=== PATIENT | male | born 1975 | race Caucasian/White ===

== ENCOUNTER 2019-08-13 08:31 | Outpatient (CLI) | payer BC, SELFPAY ==
--- NOTE | 2019-08-13 11:00 | NEURO_ITS ---
Patient Number: [id number] Impression: # Complains of generalized weakness/numbness of upper and lower extremities. # Normal nerve conduction study. # No neuropathy, Carpal Tunnel Syndrome or ulnar neuropathy. # Normal needle/EMG exam. Nerve Conduction Studies Anti Sensory Summary Table Stim Site NR Peak (ms) P-T Amp (?V) Site1 Site2 Delta-P (ms) Dist (cm) Paul (m/s) Left Median Anti Sensory (2-3nd Digit) Wrist 2.9 50.8 Wrist 2-3nd Digit 2.9 14.0 48 Wrist 2.8 65.0 Wrist 2-3nd Digit 2.9 14.0 48 Right Median Anti Sensory (2-3nd Digit) Wrist 2.8 59.5 Wrist 2-3nd Digit 2.8 14.0 50 Wrist 2.8 46.6 Wrist 2-3nd Digit 2.8 14.0 50 Left Radial Anti Sensory (Base 1st Digit) Wrist 2.3 28.7 Wrist Base 1st Digit 2.3 0.0 Right Radial Anti Sensory (Base 1st Digit) Wrist 2.2 23.7 Wrist Base 1st Digit 2.2 0.0 Left Sup Fibular Anti Sensory (Ant Lat Mall) 14 cm 3.8 6.5 14 cm Ant Lat Mall 3.8 16.0 42 Right Sup Fibular Anti Sensory (Ant Lat Mall) 14 cm 4.0 15.4 14 cm Ant Lat Mall 4.0 16.0 40 Left Sural Anti Sensory (Lat Mall) Calf 4.0 12.2 Calf Lat Mall 4.0 16.0 40 Right Sural Anti Sensory (Lat Mall) Calf 3.8 9.0 Calf Lat Mall 3.8 16.0 42 Left Ulnar Anti Sensory (5th Digit) Wrist 2.8 62.4 Wrist 5th Digit 2.8 14.0 50 Right Ulnar Anti Sensory (5th Digit) Wrist 2.4 39.9 Wrist 5th Digit 2.4 14.0 58 Motor Summary Table Stim Site NR Onset (ms) O-P Amp (mV) Site1 Site2 Delta-0 (ms) Dist (cm) Paul (m/s) Left Median Motor (Abd Poll Brev) Wrist 3.1 3.9 Elbow Wrist 4.9 30.0 61 Elbow 8.0 3.3 Right Median Motor (Abd Poll Brev) Wrist 3.3 4.5 Elbow Wrist 4.6 29.0 63 Elbow 7.9 4.1 Left Peroneal Motor (Vastus Med) Ankle 4.8 1.6 Popit Ankle 9.1 41.0 45 Popit 13.9 1.2 Right Peroneal Motor (Vastus Med) Ankle 4.9 1.8 Popit Ankle 9.2 39.0 42 Popit 14.1 1.5 Left Tibial Motor (Abd Cabrera Brev) Ankle 5.2 5.2 Knee Ankle 9.3 45.0 48 Knee 14.5 3.3 Right Tibial Motor (Abd Cabrera Brev) Ankle 5.6 8.8 Knee Ankle 8.9 42.0 47 Knee 14.5 8.5 Left Ulnar Motor (Abd Dig Minimi) Wrist 2.7 6.8 A Elbow Wrist 5.0 31.0 62 A Elbow 7.7 5.4 Right Ulnar Motor (Abd Dig Minimi) Wrist 2.4 4.4 A Elbow Wrist 4.8 30.0 62 A Elbow 7.2 3.6 F Wave Studies NR F-Lat (ms) L-R F-Lat (ms) Left Median (Mrkrs) (Abd Poll Brev) 27.25 1.05 Right Median (Mrkrs) (Abd Poll Brev) 28.30 1.05 Left Peroneal (Mrkrs) (EDB) 53.21 0.86 Right Peroneal (Mrkrs) (EDB) 52.34 0.86 Left Tibial (Mrkrs) (Abd Hallucis) 52.37 1.02 Right Tibial (Mrkrs) (Abd Hallucis) 51.35 1.02 Left Ulnar (Mrkrs) (Abd Dig Min) 27.76 0.70 Right Ulnar (Mrkrs) (Abd Dig Min) 28.46 0.70 EMG Side Muscle Nerve Root Ins Act Fibs Amp Dur Recrt Comment Right 1stDorInt Ulnar C8-T1 Nml Nml Nml Nml Nml Right Ext Indicis Radial (Post Int) C7-8 Nml Nml Nml Nml Nml Right Ext Digitorum Radial (Post Int) C7-8 Nml Nml Nml Nml Nml Right BrachioRad Radial C5-6 Nml Nml Nml Nml Nml Right PronatorTeres Median C6-7 Nml Nml Nml Nml Nml Right Abd Poll Brev Median C8-T1 Nml Nml Nml Nml Nml Right AntTibialis Dp Br Fibular L4-5 Nml Nml Nml N
== END 2019-08-13 08:32 | disposition home or self-care (01) ==
PROVIDERS: PCP Family Medicine Adolescent Medicine; Visit Provider Psychiatry & Neurology Neurology
DX: M62.81 Muscle weakness (generalized) (principal)
CPT/HCPCS: 95886; 95913

== ENCOUNTER 2020-09-12 13:10 | Outpatient (CLI) | payer OTHER, SELFPAY ==
--- NOTE | ~2020-09-12 | CT_ITS ---
EXAMINATION: CT abdomen pelvis w con DATE: 09/12/2020 13:45 INDICATION: Epigastric abdominal pain. Left-sided back pain. TECHNIQUE: Computed tomography (CT) of the abdomen and pelvis was performed with 100 L Omnipaque 350 intravenous contrast. Automated exposure control and iterative reconstruction technique were employed . The dose-length product was 497.84 mGy-cm. COMPARISON: None. FINDINGS: The visualized portions of the lung bases demonstrate mild atelectasis. No pleural effusion . The heart size is normal. No pericardial effusion. The liver, gallbladder, spleen, pancreas, adrena l glands, and right kidney are normal. There is a 9 mm cyst in left kidney. There are no dilated loop s of bowel. The appendix is normal. There is a small sliding hiatal hernia. There are no pathological ly enlarged lymph nodes. There is no free intraperitoneal fluid. There is moderate lower lumbar spond ylosis. IMPRESSION: 1. Small sliding hiatal hernia. Reviewed, dictated and finalized at location A.
== END 2020-09-12 13:11 | disposition home or self-care (01) ==
PROVIDERS: PCP Physician Assistant; Visit Provider Physician Assistant
DX: R10.13 Epigastric pain (principal); K44.9 Diaphragmatic hernia without obstruction or gangrene
CPT/HCPCS: 74177; Q9967

== ENCOUNTER 2021-02-23 15:20 | Emergency (ER) | payer OTHER, SELFPAY ==
[2021-02-23 15:24] VITALS: BP 124/91; PULSE 69; RESP 20; TEMP 36.7; O2SAT 100
[2021-02-23 15:52] LABS: Basophils Absolute Auto 0.1 K/mm3 (0.0-0.1); Basophils Percent Auto 0.7 % (0.2-1.2); Eosinophils Absolute Auto 0.2 K/mm3 (0-0.3); Eosinophils Percent Auto 3.1 % (0-4.4); Hematocrit 44.5 % (42.0-52.0); Hemoglobin 15.1 g/dL (14.0-18.0); Immature Granulocyte Absolute 0.02 K/mm3 (0.00-0.031); Immature Granulocyte Percent A 0.3 % (0-0.5); Lymphocytes Absolute Auto 1.62 K/mm3 (0.9-3.2); Lymphocytes Percent Auto 22.6 % (18.3-44.2); Mean Corpuscular HGB Conc 33.9 g/dl (32-36); Mean Corpuscular Hemoglobin 29.8 pg (26-34); Mean Corpuscular Volume 87.9 fl (80-100); Mean Platelet Volume 9.6 fl (7.4-10.4); Monocytes Absolute Auto 0.5 K/mm3 (0.1-0.6); Monocytes Percent Auto 6.7 % (2.6-8.5); Neutrophils Absolute Auto 4.8 K/mm3 (1.3-6.7); Neutrophils Percent Auto 66.6 % (45.5-73.1); Platelet Count Result 293 k/mm3 (150-375); Red Blood Count 5.06 M/mm3 (4.6-6.20); Red Cell Distribution Width 13.1 % (11.5-14.5); White Blood Count 7.2 K/mm3 (4.5-10.0)
[2021-02-23 15:54] LABS: Add Urine Microscopic? NO; Appearance Urine Clear (Clear); Bilirubin Urine Negative (Negative); Blood Urine Negative (Negative); Color Urine Straw (Yellow); Glucose Urine UA Negative (Negative); Ketones Urine Negative (Negative); Leukocyte Esterase Ur Negative LEU/UL (Negative); Nitrate Urine Negative (Negative); Protein Urine Negative (Negative); Specific Grav Ur 1.006 (1.001-1.035); Urobilinogen Urine Negative mg/dL (<2.0)
[2021-02-23 16:09] LABS: Alanine Aminotransferase 18 U/L (4-50); Albumin Level 4.7 g/dL (3.5-5.1); Alkaline Phosphatase 80 U/L (38-126); Anion Gap 11 mmol/L (8-16); Aspartate Amino Transferase 22 U/L (17-59); Bilirubin,Total 0.6 mg/dL (0.2-1.3); Blood Urea Nitrogen 9 mg/dL (9-20); Calcium 9.8 mg/dL (8.4-10.2); Carbon Dioxide 24 mmol/L (22-30); Chloride 105 mmol/L (98-107); Estimated CRCL calculation 79 ml/min; Estimated Glomerular Filt Rate > 60; Glucose 117 mg/dL (65-110); Sodium 140 mmol/L (137-145)
[2021-02-23 16:11] LABS: Amphetamine Screen Urine Negative (Negative); Barbiturate Screen Urine Negative (Negative); Benzodiazepines Screen Urine Positive (Negative); Cannabinoid Screen Urine Positive (Negative); Cocaine Screen Urine Negative (Negative); Methadone Screen Urine Negative (Negative); Opiate Screen Urine Negative (Negative); Phencyclidine Screen Urine Negative (Negative)
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
[2021-02-23 16:39] LABS: Thyroid Stimulating Hormone 0.863 uIU/mL (0.465-4.680)
[2021-02-23 17:24] LABS: Ethanol < 10 mg/dL (<10)
--- NOTE | 2021-02-23 20:04 | PC.NURSE ---
secratary faxed pt file to [facility] at 2005
[2021-02-23 20:39] LABS: EDCOVIDSCREEN Negative (Negative)
--- NOTE | 2021-02-23 20:41 | PC.NURSE ---
Requests home medications, reviewed with Dr. Castillo and orders placed.
[2021-02-23] MEDS: ALPRAZolam (*CRX) 0.25 MG TABLET 1 MG PO (21:12)
[2021-02-23] MEDS: DIVALPROEX SODIUM DR 250 MG TABEC 500 MG PO (22:02)
[2021-02-23] MEDS: ARIPiprazole 2 MG TABLET PO (22:02)
[2021-02-23] MEDS: lamoTRIgine 100 MG TABLET PO (22:03)
--- NOTE | 2021-02-23 22:54 | PC.NURSE ---
made contact with mohini, valeriy germain, and yadiel KAN to transfer pt to [facility]. company eta [phone] (trip# [id number])
--- NOTE | 2021-02-23 23:38 | PC.NURSE ---
tafoya new eta [phone]
--- NOTE | 2021-02-24 01:45 | PC.NURSE ---
[place] has arrived
[2021-02-24 01:50] VITALS: BP 127/87; PULSE 74; RESP 18; O2SAT 99
== END 2021-02-24 01:50 ==
PROVIDERS: Emergency Medicine; Emergency Provider Emergency Medicine; PCP Family Medicine Adolescent Medicine
DX: R45.850 Homicidal ideations (principal); F31.9 Bipolar disorder, unspecified; F41.9 Anxiety disorder, unspecified; Z20.822 Contact with and (suspected) exposure to COVID-19
CPT/HCPCS: 36415; 80053; 80307; 81003; 84443; 85025; 87426; 99285; A9270; C9803

== ENCOUNTER 2022-05-17 18:59 | Inpatient (IN) | payer SELFPAY ==
--- NOTE | ~2022-05-17 | CT_ITS ---
EXAMINATION: CT abdomen pelvis w con DATE: 05/17/2022 22:39 INDICATION: Generalized abdominal pain. TECHNIQUE: Computed tomography (CT) of the abdomen and pelvis was performed with 100 mL Omnipaque 350 intravenous contrast. Automated exposure control and iterative reconstruction technique were employe d. The dose-length product was 402.62 mGy-cm. COMPARISON: CT abdomen and pelvis 09/12/2020 FINDINGS: The visualized portions of the lung bases are clear without pneumonia or pleural effusion. The heart size is normal. No pericardial effusion. The liver, gallbladder, spleen, pancreas, adrenal glands, and right kidney are normal. There is an 8 mm cyst in left kidney. The appendix is normal. Th ere are multiple dilated loops of small bowel with transition point in the anterior abdomen. There is mild mesenteric lymphadenopathy. There is trace pelvic ascites. There is severe lower lumbar spondyl osis. There is mild thoracic spondylosis. There is mild chronic anterior wedging of multiple thoracic vertebral bodies. IMPRESSION: 1. Small bowel obstruction with transition point in the anterior abdomen. 2. Mild mesenteric lymphadenopathy, likely reactive. Reviewed, dictated and finalized at location A. H PRESS OPERATOR
--- NOTE | ~2022-05-17 | XR_ITS ---
EXAMINATION: XR abdomen NG/feed tube rechec DATE: 05/18/2022 18:14 INDICATION: Nasogastric tube adjustment. TECHNIQUE: An upright view of the abdomen was obtained. COMPARISON: Abdomen radiograph at 4:01 p.m. FINDINGS: The lower abdomen and right lateral aspect of the abdomen are excluded. There are no dilate d loops of bowel. The nasogastric tube tip is in the stomach. IMPRESSION: 1. Nasogastric tube tip in the stomach. Reviewed, dictated and finalized at location A. OR RELIABILITY ENGINEER
--- NOTE | ~2022-05-17 | XR_ITS ---
EXAMINATION: XR abdomen/kub 1V DATE: 05/20/2022 05:53 INDICATION: Small bowel obstruction. TECHNIQUE: A supine view of the abdomen was obtained. COMPARISON: CT abdomen and pelvis 05/17/22 FINDINGS: There are no dilated loops of bowel. There is a moderate volume of stool in the colon. The nasogastric tube tip is in the stomach. IMPRESSION: 1. Nonobstructive bowel gas pattern. Reviewed, dictated and finalized at location A. OLEUM GEOLOGY FACULTY MEMBER
--- NOTE | ~2022-05-17 | XR_ITS ---
Portable upright view of the abdomen Clinical history: NG tube placement Findings: NG tube is in satisfactory position. Several dilated loops of small bowel are noted in the upper abdomen. No evidence for free air. No abnormal mass lesion or calcification is seen. Osseous st ructures are intact. Impression: NG tube in place, several dilated small bowel loops. Reviewed, dictated and finalized at location . [place] PARTS PRO Impression: NG tube in place, several dilated small bowel loops.
--- NOTE | ~2022-05-17 | XR_ITS ---
EXAMINATION: XR sm bowel follow through DATE: 05/20/2022 12:49 INDICATION: Small bowel obstruction. TECHNIQUE: Oral contrast was administered, and a time course of radiographs of the abdomen was obtain ed. Fluoroscopy of the small bowel was not performed. Fluoroscopy exposure time was 0 minutes. The to aviva number of images was 5. COMPARISON: CT abdomen and pelvis 05/17/22 FINDINGS: The nasogastric tube tip is in the stomach. There are no dilated loops of small bowel. No abnormal ma ss or stricture. Transit time from the stomach to proximal colon was approximately 30 minutes. IMPRESSION: 1. Normal small bowel series. Reviewed, dictated and finalized at location A. RN CAR ATTENDANT
--- NOTE | ~2022-05-17 | XR_ITS ---
Supine portable view of the abdomen Clinical history: Small bowel obstruction Findings: Bowel gas pattern is nonspecific. Oral contrast present in large bowel. No evidence for obs truction or free air. No abnormal mass lesion or calcification is seen. Osseous structures are intact . Impression: Nonspecific bowel gas pattern, with oral contrast in large bowel. Reviewed, dictated and finalized at [facility]. MILL OPERATOR Impression: Nonspecific bowel gas pattern, with oral contrast in large bowel.
--- NOTE | ~2022-05-17 | XR_ITS ---
EXAMINATION: XR abdomen NG/feed tube rechec DATE: 05/18/2022 16:15 INDICATION: Small bowel obstruction. Minimal nasogastric tube output. TECHNIQUE: An upright view of the abdomen was obtained. COMPARISON: CT abdomen and pelvis 05/17/22 FINDINGS: The lower abdomen is excluded. There are no visible dilated loops of bowel. The nasogastric tube tip is in the stomach. IMPRESSION: 1. Nasogastric tube tip in the stomach. Reviewed, dictated and finalized at location A. ARIN SPEAKING NANNY
--- NOTE | ~2022-05-17 | XR_ITS ---
EXAMINATION: XR abdomen/kub 1V DATE: 05/19/2022 06:16 INDICATION: Small bowel obstruction. TECHNIQUE: A supine view of the abdomen on 3 radiographs was obtained. COMPARISON: CT abdomen and pelvis 05/17/22 FINDINGS: There are no dilated loops of bowel. There is a small volume of stool in the colon. The alexandra ogastric tube tip is in the stomach. IMPRESSION: 1. Nonobstructive bowel gas pattern. Reviewed, dictated and finalized at location A. STIC VIOLENCE COUNSELOR
[2022-05-17 19:09] VITALS: BP 155/103; PULSE 69; RESP 16; TEMP 36.2; O2SAT 99
[2022-05-17 19:29] LABS: Basophils Percent Auto 0.2 % (0.2-1.2); Eosinophils Percent Auto 0.1 % (0-4.4); Hematocrit 51.5 % (42.0-52.0); Hemoglobin 17.5 g/dL (14.0-18.0); Immature Granulocyte Absolute 0.08 K/mm3 (0.00-0.031); Immature Granulocyte Percent A 0.5 % (0-0.5); Lymphocytes Absolute Auto 0.76 K/mm3 (0.9-3.2); Lymphocytes Percent Auto 4.5 % (18.3-44.2); Mean Corpuscular Hemoglobin 30.3 pg (26-34); Mean Corpuscular Volume 89.1 fl (80-100); Mean Platelet Volume 9.5 fl (7.4-10.4); Monocytes Absolute Auto 0.5 K/mm3 (0.1-0.6); Monocytes Percent Auto 2.9 % (2.6-8.5); Neutrophils Absolute Auto 15.6 K/mm3 (1.3-6.7); Neutrophils Percent Auto 91.8 % (45.5-73.1); Platelet Count Result 379 k/mm3 (150-375); Red Blood Count 5.78 M/mm3 (4.6-6.20); Red Cell Distribution Width 12.8 % (11.5-14.5)
[2022-05-17 19:39] LABS: Alanine Aminotransferase 23 U/L (6-50); Albumin Level 5.2 g/dL (3.5-5.1); Alkaline Phosphatase 83 U/L (38-126); Anion Gap 13 mmol/L (8-16); Aspartate Amino Transferase 27 U/L (17-59); Bilirubin,Total 0.7 mg/dL (0.2-1.3); Blood Urea Nitrogen 17 mg/dL (9-20); Calcium 10.5 mg/dL (8.4-10.2); Carbon Dioxide 30 mmol/L (22-30); Chloride 97 mmol/L (98-107); Estimated CRCL calculation 85 ml/min; Estimated Glomerular Filt Rate > 60; Glucose 154 mg/dL (65-110); Lipase 51 U/L (23-300); Sodium 140 mmol/L (137-145)
[2022-05-17 19:41] LABS: Lactic Acid Reflex 1.7 mmol/L (0.7-2.0)
[2022-05-17 22:26] VITALS: PULSE 76; RESP 9; O2SAT 98
[2022-05-17 22:30] VITALS: PULSE 71; RESP 10; O2SAT 97
[2022-05-17 22:31] VITALS: BP 147/101; PULSE 73; RESP 12
[2022-05-17] MEDS: SODIUM CHLORIDE 0.9% IV 1,000 ML 999 ML IV CONT (22:42)
[2022-05-17] MEDS: MORPHINE SULFATE (*CRX) 4 MG/ML INJ IV PUSH (22:43)
[2022-05-17] MEDS: ONDANSETRON INJ 4 MG/2 ML VIAL IV PUSH (22:43)
--- NOTE | 2022-05-17 23:26 | PC.NURSE ---
patient refusing straight cath. patient encouraged to provide urine sample as soon as possible. fluids infusing per order
[2022-05-17 23:53] VITALS: PULSE 89; RESP 16; O2SAT 95
[2022-05-18] VITALS (11 sets, daily range): BP systolic 116–156; BP diastolic 76–97; PULSE 69–117; RESP 11–30; TEMP 36.2–36.5; O2SAT 95–100
--- NOTE | 2022-05-18 00:03 | ED.GENADULT ---
HPI - General Adult General Chief complaint: Abdominal Pain Stated complaint: abd pain Time Seen by Provider: 05/17/22 22:19 History of Present Illness HPI narrative: Patient 46-year-old gentleman who presents the emergency department with chief complaint of abdominal pain. Patient reports that he started having pain today reports that he has had episodes of nausea and vomiting and reports that the pain is not improved by anything. The patient reports no prior abdominal surgeries Related Data Home Medications Medication Instructions Recorded Confirmed lamotrigine 100 mg tablet 100 mg HS 02/23/21 05/18/22 alprazolam 1 mg tablet 1 mg PO QID 05/29/21 05/18/22 divalproex 500 mg tablet,delayed 500 mg PO QHS 05/29/21 05/18/22 release quetiapine 150 mg tablet,extended 300 mg PO QHS 05/29/21 05/18/22 release 24 hr (Seroquel XR) Allergies Allergy/AdvReac Type Severity Reaction Status Date / Time No Known Allergies Allergy Unknown Uncoded 05/17/22 19:11 Review of Systems Review of Systems: A 10 system review of systems was completed on the patient and is negative except for what is stated in the HPI. Nursing and ancillary documentation was reviewed. [facility] Past Medical History Medical History (Updated 05/18/22 @ 00:15 by Emily Martínez DO) Anxiety Bipolar 1 disorder Depression Dorsalgia of thoracolumbar region Surgical History Surgical History No pertinent past surgical history Family History Family History Mother Asthma Depression Sibling Asthma Cerebrovascular accident Depression Father Heart disease Malignant neoplasm of prostate Social History Social History (Updated 05/18/22 @ 00:13 by Emily Martínez DO) Smoking status: Never smoker Second hand tobacco smoke exposure: No Smoking end date: 05/03/12 Alcohol intake: current Drinks per week: 1 Substance use: current Substance use type: marijuana Lack of Transportation: No Lack of Food: Never True Current Housing: I Have Housing Concerned About Future Housing: No Difficulty Paying Gas/Electric Bills: No Difficulty Paying for Meds: No Currently Unemployed: No Education: High School Diploma/GED Difficulty w/ Childcare or Family Care: No Gender identity (if verbalized by the patient): Male Sexual Orientation (if Verbalized by the Patient): Straight or Heterosexual Spiritual care concerns: No Agree to blood products: Yes Exam Narrative: GENERAL: Well-appearing, well-nourished, and in no acute distress. HEAD: Normocephalic, atraumatic. EYES: PERRLA and EOMI. ENT: Nares clear, no rhinorrhea or epistaxis. Mucous membranes moist. NECK: Supple. CHEST: Clear to auscultation. No respiratory distress. HEART: Regular rate and rhythm. No murmur heard. Normal peripheral pulses. ABDOMEN: Soft, diffusely tender, nondistended, normal active bowel sounds. EXTREMITIES: Normal range of motion. No edema. SKIN: Warm, dry, no rash. NEURO: No focal deficits. Alert and oriented x3. PSYCH: Normal mood and affect. Course Vital Signs Vital signs: Vital Signs Temperature 36.2 C L 05/17/22 19:09 Pulse Rate 69 05/17/22 19:09 Respiratory Rate 16 05/17/22 19:09 Blood Pressure 155/103 H 05/17/22 19:09 Pulse Oximetry 99 05/17/22 19:09 Temperature 36.2 C L 05/17/22 19:09 Pulse Rate 86 05/18/22 00:46 Respiratory Rate 21 H 05/18/22 00:46 Blood Pressure 156/88 H 05/18/22 00:46 Pulse Oximetry 97 05/18/22 00:46 Medical Decision Making MDM Narrative Medical decision making narrative: Laboratory studies were ordered for the patient showed evidence of white blood cell count of 17,000. Patient received IV fluids antiemetics and pain control. Patient is feeling much better. CT scan of the abdomen pelvis showed evidence of a small bowel obstruction with a transitio
--- NOTE | 2022-05-18 00:04 | ECG_ITS ---
Measurements Intervals [place] Rate: 67 P: 9 NM: 129 QRS: 43 QRSD: 101 T: 41 QT: 375 QTc: 399 Interpretive Statements SINUS RHYTHM BASELINE ARTIFACT- I, II, III, AVR, AVL, AVF, V1, V5-V6 NORMAL ECG COMPARED TO ECG 02/18/2019 04:57:42 SINUS RHYTHM NOW PRESENT Electronically Signed On 05-18-2022 7:44:43 MIXER WET POUR by Seymour Valle D.O.
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
[2022-05-18 01:29] LABS: Influenza A QL RT-PCR Negative (Negative); Influenza B QL RT-PCR Negative (Negative); SARS-CoV-2 RNA PCR Negative
--- NOTE | 2022-05-18 01:37 | ADMGEN ---
This patient, Pedro Helms, was admitted to [facility] Surg Room 307-02. Patient/family oriented to hospital policies and general routines including ID bracelet, bed and alarms, visiting hours, pain management, procedures, bathroom and other care routines, personal items, smoking policy, room service/diet, and visiting hours. Information on how to activate the Rapid Response Team has been discussed. Patient/Family are encouraged to report perceived risks to care and to ask questions if they do not understand what they are told or what they should do.
[2022-05-18] MEDS: SODIUM CHLORIDE 0.9% IV 1,000 ML 100 ML IV CONT ×2 (01:53→14:20)
[2022-05-18 02:31] LABS: Add Urine Microscopic? YES; Appearance Urine Clear (Clear); Bilirubin Urine Negative (Negative); Blood Urine Negative (Negative); Color Urine Yellow (Yellow); Glucose Urine UA Negative (Negative); Ketones Urine 3+ mg/dL (Negative); Leukocyte Esterase Ur Negative LEU/UL (Negative); Nitrate Urine Negative (Negative); Protein Urine 1+ mg/dL (Negative); Urobilinogen Urine 0.2 mg/dL (<2.0); pH Urine 8.5 (5.0-9.0)
[2022-05-18 03:06] LABS: Mucus Urine Rare /lpf; Squamous Epithelial Cell Urine Rare /hpf (Few); WBC Urine 0-3 /hpf
[2022-05-18] MEDS: ENOXAPARIN 40 MG/0.4 ML SYRINGE SUB-Q (08:06)
[2022-05-18] MEDS: PANTOPRAZOLE SODIUM IV 40 MG VIAL IV PUSH (08:06)
[2022-05-18 08:57] LABS: Hematocrit 42.3 % (42.0-52.0); Hemoglobin 14.4 g/dL (14.0-18.0); Mean Corpuscular Hemoglobin 30.9 pg (26-34); Mean Corpuscular Volume 90.8 fl (80-100); Mean Platelet Volume 9.4 fl (7.4-10.4); Platelet Count Result 286 k/mm3 (150-375); Red Blood Count 4.66 M/mm3 (4.6-6.20); Red Cell Distribution Width 13.1 % (11.5-14.5); White Blood Count 13.1 K/mm3 (4.5-10.0)
[2022-05-18 09:09] LABS: Alanine Aminotransferase 19 U/L (6-50); Albumin Level 4.1 g/dL (3.5-5.1); Alkaline Phosphatase 52 U/L (38-126); Anion Gap 6 mmol/L (8-16); Aspartate Amino Transferase 22 U/L (17-59); Bilirubin,Total 0.7 mg/dL (0.2-1.3); Blood Urea Nitrogen 13 mg/dL (9-20); Calcium 8.8 mg/dL (8.4-10.2); Carbon Dioxide 26 mmol/L (22-30); Chloride 102 mmol/L (98-107); Estimated CRCL calculation 85 ml/min; Estimated Glomerular Filt Rate > 60; Glucose 114 mg/dL (65-110); Potassium 3.7 mmol/L (3.4-5.0); Sodium 134 mmol/L (137-145)
[2022-05-18] MEDS: MORPHINE SULFATE (*CRX) 2 MG/ML INJ IV PUSH (15:09)
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
--- NOTE | 2022-05-18 18:17 | PC.NURSE ---
Pt stated that the dose that was entered into the home med list is accurate, however, it does not match the external pharmacy. Discussed the dosage in detail with patient and requested someone to bring in his pill bottles for us to compare. He said no one has access to his house until at least tomorrow. Called Dr Monroe to update on the situation, he stated he will look in the chart and update.
--- NOTE | 2022-05-18 18:39 | PC.NURSE ---
Spoke with Dr Monroe again and he stated to order the doses that come from his external med history so patient can get a dose tonight and change dosage tomorrow once the bottles are brought in.
[2022-05-18] MEDS: KCL 20 MEQ/D5/0.9% SOD CHL 1,000 ML 100 ML IV CONT (20:37)
[2022-05-18] MEDS: QUEtiapine FUMARATE 100 MG TABLET PO (20:38)
[2022-05-18] MEDS: DIVALPROEX SODIUM ER 250 MG TAB.24H 750 MG PO (20:38)
[2022-05-18] MEDS: lamoTRIgine 100 MG TABLET BY MOUTH (20:41)
[2022-05-18] MEDS: FAMOTIDINE 20 MG/2 ML VIAL IV PUSH (20:42)
[2022-05-19 06:00] VITALS: BP 112/73; PULSE 61; RESP 14; TEMP 36.4; O2SAT 97
[2022-05-19] MEDS: KCL 20 MEQ/D5/0.9% SOD CHL 1,000 ML 100 ML IV CONT ×2 (06:41→19:17)
[2022-05-19 06:54] LABS: Hemoglobin 13.9 g/dL (14.0-18.0); Mean Corpuscular HGB Conc 33.1 g/dl (32-36); Mean Corpuscular Hemoglobin 30.5 pg (26-34); Mean Corpuscular Volume 92.3 fl (80-100); Platelet Count Result 238 k/mm3 (150-375); Red Blood Count 4.55 M/mm3 (4.6-6.20); White Blood Count 7.7 K/mm3 (4.5-10.0)
[2022-05-19 07:09] LABS: Alanine Aminotransferase 18 U/L (6-50); Albumin Level 3.9 g/dL (3.5-5.1); Alkaline Phosphatase 49 U/L (38-126); Anion Gap 6 mmol/L (8-16); Aspartate Amino Transferase 21 U/L (17-59); Bilirubin,Total 0.7 mg/dL (0.2-1.3); Blood Urea Nitrogen 11 mg/dL (9-20); Calcium 8.2 mg/dL (8.4-10.2); Carbon Dioxide 27 mmol/L (22-30); Chloride 103 mmol/L (98-107); Estimated CRCL calculation 78 ml/min; Estimated Glomerular Filt Rate > 60; Glucose 108 mg/dL (65-110); Potassium 3.8 mmol/L (3.4-5.0); Sodium 136 mmol/L (137-145)
[2022-05-19] MEDS: DIVALPROEX SODIUM ER 250 MG TAB.24H PO (08:33)
[2022-05-19] MEDS: ENOXAPARIN 40 MG/0.4 ML SYRINGE SUB-Q (08:33)
[2022-05-19] MEDS: FAMOTIDINE 20 MG/2 ML VIAL IV PUSH ×2 (08:33→20:15)
--- NOTE | 2022-05-19 10:38 | PM.CNGS ---
Assessment and Plan Assessment and plan (1) Small bowel obstruction: Code(s): K56.609 - Unspecified intestinal obstruction, unspecified as to partial versus complete obstruction Status: Acute Assessment and Plan: Small-bowel obstruction by clinical and radiographic criteria. Hopefully this will resolve with nonsurgical means. Will advance nasogastric tube and increased suction to constant and medium. Follow serial exams, plain films of the abdomen, labs. Continue NPO except meds with sips and NG suction. He has p.r.n. analgesics as well. Will follow along with you. Thanks for asking me to see this patient in consultation. (2) Bipolar 1 disorder: Code(s): F31.9 - Bipolar disorder, unspecified Status: Chronic Assessment and Plan: Patient takes several meds for this at bedtime. Will continue these and clamp NG tube for 45 minutes so they can be absorbed. History of Present Illness Consult details Consult date: 05/18/22 (Patient seen and examined around 5:00 p.m. 05/18/2022, dictation performed 05/19/2022.) Reason for consult: abdominal pain Requesting physician: Corey Sorenson MD Narrative: Patient is a 46-year-old man who began having abdominal pain of a diffuse nature around 3:00 p.m. on the day of admission. This pain worsened and then was accompanied by large amounts of nausea and vomiting. When it persisted, he came to the emergency room. He was noted there to have a diffusely tender abdomen [place] [address] scan showed small bowel obstruction. Nasogastric tube was placed. Not a lot of gastric content had returned and patient continued to have abdominal pain although is vomiting had stopped. He has not had any previous abdominal surgery. He is seen in consultation. He has not had a bowel movement in a couple of days. Review of Systems Review of Systems: All systems reviewed & are unremarkable except as noted in HPI and below (HPI and those items noted below) Constitutional: Constitutional: Denies chills and Denies fever(s) Cardiovascular: Cardiovascular: Denies chest pain, Denies diaphoresis, Denies dyspnea and Denies paroxysmal nocturnal dyspnea Respiratory: Respiratory: Denies chest congestion, Denies cough and Denies dyspnea Integumentary/Breasts: Skin/Breast: Denies lesions and Denies rash PMFSH Past Medical History Medical History Anxiety Bipolar 1 disorder Depression Dorsalgia of thoracolumbar region Migraine headache Surgical History Surgical History No pertinent past surgical history Family History Family History Mother Asthma Depression Sibling Asthma Cerebrovascular accident Depression Father Malignant neoplasm of prostate Social History Social History Social History: The patient is single and lives alone. He has 1 daughter who is 26 years old. He works as a warehouse general laborer. He rarely drinks alcohol and only in small amounts. He used to smoke less than a pack of cigarettes per day for between 8-10 years. He quit smoking in his mid 30s. He smokes marijuana and aids marijuana gummies. He has a medical marijuana card. Code status: Full code Surrogate decision maker: Mother Smoking packs per day: 0.5 Smoking cigarettes per day: 10.0 Years smoked: 10 Smoking pack-years: 5.00 Smoking status: Former smoker Second hand tobacco smoke exposure: No Smoking end date: 05/03/12 Alcohol intake: current Drinks per week: 1 Substance use: current Substance use type: marijuana Lack of Transportation: No Lack of Food: Never True Current Housing: I Have Housing Concerned About Future Housing: No Difficulty Paying Gas/Electric Bills: No Difficulty Paying for Meds: N
--- NOTE | 2022-05-19 10:50 | PM.PNGS ---
Progress Note: A&P Assessment and Plan (1) Small bowel obstruction: Code(s): K56.609 - Unspecified intestinal obstruction, unspecified as to partial versus complete obstruction Status: Acute Assessment and Plan: Improving. Continue present treatment. Possibly proceed with water-soluble small bowel follow-through tomorrow. (2) Bipolar 1 disorder: Code(s): F31.9 - Bipolar disorder, unspecified Status: Chronic Assessment and Plan: Received home meds last night. Voices no problems. Subjective Subjective Date/Time Seen: 05/19/22 10:50 Patient reports: feels better, pain is less, no flatus, no bowel movement and afebrile Interval history: Feels better today. Pain is much better. Still having some pain. Review of Systems Review of Systems: All systems reviewed & are unremarkable except as noted in HPI and below (HPI and those items noted below) Constitutional: Constitutional: Denies chills and Denies fever(s) Cardiovascular: Cardiovascular: Denies chest pain, Denies diaphoresis, Denies dyspnea and Denies paroxysmal nocturnal dyspnea Respiratory: Respiratory: Denies chest congestion, Denies cough and Denies dyspnea Integumentary/Breasts: Skin/Breast: Denies lesions and Denies rash Exam Const: General: cooperative, comfortable, no acute distress, alert and awake; No confusion Nutritional Appearance: well nourished Orientation/consciousness: patient oriented x3 and No confusion GI: Inspection: normal to inspection, non-distended and scaphoid GI Palp: Yes Soft to palpation, No Tenderness to palpation present (GI), No Guarding due to palpation present (GI) and No Rebound tenderness present Auscultation: absent bowel sounds Neuro: General: patient oriented x3, no focal motor deficits and No confusion Extrem: General: no calf tenderness and no edema Psych: Affect: normal affect Insight: Good insight present (Psych) Judgement: Good judgement present (Psych) Objective Data Vital Signs Vital Signs: Vital Signs - 24 hr 05/18/22 14:45 05/18/22 22:00 05/19/22 06:00 Temperature 36.5 C 36.2 C L 36.4 C L Pulse Rate 70 80 61 Respiratory Rate 16 14 14 Blood Pressure 133/77 130/79 112/73 Pulse Oximetry 98 95 97 Oxygen Delivery 05/19/22 08:00 Temperature Pulse Rate Respiratory Rate Blood Pressure Pulse Oximetry Oxygen Delivery Room Air Intake/Output Intake/Output: Intake & Output 05/16/22 05/17/22 05/18/22 05/19/22 23:59 23:59 23:59 23:59 Intake Total 1000 1000 1550 Output Total 850 800 Balance 1000 150 750 although not recorded in the intake and output graphics, canister for NG drainage at bedside is full. Much more NG output noted. Meds/Results Medications: Active Medications Generic Name Dose Route Start Last Admin Trade Name Freq PRN Reason Stop Dose Admin Divalproex Sodium 250 mg 05/19/22 08:00 05/19/22 08:33 Divalproex Sodium Er 250 Mg Tab.24h PO 250 mg DAILY@0800 CHAUNCEY Administration Divalproex Sodium 750 mg 05/18/22 21:00 05/18/22 20:38 Divalproex Sodium Er 250 Mg Tab.24h PO 750 mg HS CHAUNCEY Administration Enoxaparin Sodium 40 mg 05/18/22 09:00 05/19/22 08:33 Enoxaparin 40 Mg/0.4 Ml Syringe SUB-Q 40 mg DAILY CHAUNCEY Administration Famotidine 20 mg 05/18/22 21:00 05/19/22 08:33 Famotidine 20 Mg/2 Ml Vial IV PUSH 20 mg Q12HR CHAUNCEY Administration Potassium Chloride/Dextrose/Sod Cl 1,000 mls @ 100 mls/hr 05/18/22 16:35 05/19/22 06:41 Kcl 20 Meq/D5/0.9% Sod Chl IV CONT 100 mls/hr .Q10H CHAUNCEY Administration Lamotrigine 100 mg 05/18/22 21:00 05/18/22 20:41 Lamotrigine 100 Mg Tablet BY MOUTH 100 mg HS CHAUNCEY Administration Lorazepam 1 mg 05/18/22 16:29 Lorazepam Inj (*Crx) 2 Mg/Ml Vial IV PUSH Q6H PRN Anxiety Morphine Sulfate 2 mg 05/18/22 00:04 05/18/22 15:09 Morphine Sulfate (*Crx) 2 Mg/Ml Inj IV PUSH 2 mg Q4H PRN Administration Pain Rated 7-10 Phen
[2022-05-19] MEDS: MORPHINE SULFATE (*CRX) 2 MG/ML INJ IV PUSH ×2 (11:16→17:10)
--- NOTE | 2022-05-19 11:39 | PM.IMPN ---
Progress Note: A&P Assessment and Plan (1) Small bowel obstruction: Code(s): K56.609 - Unspecified intestinal obstruction, unspecified as to partial versus complete obstruction Status: Acute (2) Bipolar 1 disorder: Code(s): F31.9 - Bipolar disorder, unspecified Status: Chronic Plan The patient has acute small-bowel obstruction. NG is in place the patient is NPO and IV fluids had been initiated. Pain medications with morphine 2 mg q.4 hours p.r.n.. Nausea medications have been provided. The patient has had recent changes in his stools including changes in caliber and appearance of his stool. This could be due to his recent dietary changes with his new job verses possible underlying pathology. General surgery has been consulted. [place] [address] but no clear source of infection. Leukocytosis is likely reactive. Will repeat CBC and electrolyte panel in a.m.. Patient did have some mild hyper calcemia but is likely due to dehydration as he also had accompanying elevated albumin. Continue IV fluids. The patient's home psychiatric medications are on hold. Will provide Ativan 0.5 mg q.6 hours p.r.n. anxiety. 05/19/2022 interval history: 46-year-old male presented with abdominal pain is found to have a small-bowel obstruction, currently on NG tube intermittent suction, pain is persistent, occasional passing gas, no BM, continue conservative management, decompression with NG tube, IV fluids and pain management, seen by General surgery patient may small bowl follow-through tomorrow, patient is encouraged to ambulate, will monitor and further recommendation. Subjective Date/time seen: 05/19/22 11:39 05/19/2022 interval history: 46-year-old male presented with abdominal pain is found to have a small-bowel obstruction, currently on NG tube intermittent suction, pain is persistent, occasional passing gas, no BM, continue conservative management, decompression with NG tube, IV fluids and pain management, seen by General surgery patient may small bowl follow-through tomorrow, patient is encouraged to ambulate, will monitor and further recommendation. Exam Narrative: Patient is comfortable, NAD HEENT: eyes are clear and none icteric LUNGS: normal respiratory effort ABD: distended Lower extremities: no edema SKIN: nonjaundiced Neuro: grossly intact. Objective Data Vital Signs Vital Signs: Vital Signs - 24 hr 05/18/22 14:45 05/18/22 22:00 05/19/22 06:00 Temperature 97.7 F 97.2 F L 97.5 F L Pulse Rate 70 80 61 Respiratory Rate 16 14 14 Blood Pressure 133/77 130/79 112/73 Pulse Oximetry 98 95 97 Oxygen Delivery 05/19/22 08:00 Temperature Pulse Rate Respiratory Rate Blood Pressure Pulse Oximetry Oxygen Delivery Room Air Intake/Output Intake/Output: Intake & Output 05/16/22 05/17/22 05/18/22 05/19/22 23:59 23:59 23:59 23:59 Intake Total 1000 1000 1550 Output Total 850 800 Balance 1000 150 750 Meds/Results Medications: Active Medications Generic Name Dose Route Start Last Admin Trade Name Freq PRN Reason Stop Dose Admin Divalproex Sodium 250 mg 05/19/22 08:00 05/19/22 08:33 Divalproex Sodium Er 250 Mg Tab.24h PO 250 mg DAILY@0800 CHAUNCEY Administration Divalproex Sodium 750 mg 05/18/22 21:00 05/18/22 20:38 Divalproex Sodium Er 250 Mg Tab.24h PO 750 mg HS CHAUNCEY Administration Enoxaparin Sodium 40 mg 05/18/22 09:00 05/19/22 08:33 Enoxaparin 40 Mg/0.4 Ml Syringe SUB-Q 40 mg DAILY CHAUNCEY Administration Famotidine 20 mg 05/18/22 21:00 05/19/22 08:33 Famotidine 20 Mg/2 Ml Vial IV PUSH 20 mg Q12HR CHAUNCEY Administration Potassium Chloride/Dextrose/Sod Cl 1,000 mls @ 100 mls/hr 05/18/22 16:35 05/19/22 06:41 Kcl 20 Meq/D5/0.9% Sod Chl IV CONT 100 mls/hr .Q10H CHAUNCEY Administration Lamotrigine 100 mg 05/18/22 21:00 05/18/22 20:41 Lamotrigine 100 Mg Tablet BY MOUTH 100 mg HS CHAUNCEY
[2022-05-19 14:00] VITALS: BP 125/83; PULSE 57; RESP 15; TEMP 36.4; O2SAT 98
[2022-05-19] MEDS: BENZOCAINE/MENTHOL (*BKC) 18 EA LOZENGE 1 LOZENGE PO (20:14)
[2022-05-19] MEDS: lamoTRIgine 100 MG TABLET BY MOUTH (20:15)
[2022-05-19] MEDS: DIVALPROEX SODIUM ER 250 MG TAB.24H 750 MG PO (20:15)
[2022-05-19] MEDS: QUEtiapine FUMARATE 100 MG TABLET PO (20:15)
[2022-05-19 22:00] VITALS: TEMP 36.3
[2022-05-20 06:00] VITALS: BP 114/76; PULSE 57; RESP 18; TEMP 36.1; O2SAT 96
[2022-05-20 06:32] LABS: Hematocrit 41.8 % (42.0-52.0); Hemoglobin 13.9 g/dL (14.0-18.0); Mean Corpuscular HGB Conc 33.3 g/dl (32-36); Mean Corpuscular Hemoglobin 30.7 pg (26-34); Mean Corpuscular Volume 92.3 fl (80-100); Mean Platelet Volume 9.7 fl (7.4-10.4); Platelet Count Result 200 k/mm3 (150-375); Red Blood Count 4.53 M/mm3 (4.6-6.20); Red Cell Distribution Width 12.6 % (11.5-14.5); White Blood Count 5.9 K/mm3 (4.5-10.0)
[2022-05-20 06:52] LABS: Alanine Aminotransferase 16 U/L (6-50); Albumin Level 3.8 g/dL (3.5-5.1); Alkaline Phosphatase 45 U/L (38-126); Anion Gap 4 mmol/L (8-16); Aspartate Amino Transferase 19 U/L (17-59); Bilirubin,Total 0.7 mg/dL (0.2-1.3); Blood Urea Nitrogen 11 mg/dL (9-20); Calcium 8.3 mg/dL (8.4-10.2); Carbon Dioxide 29 mmol/L (22-30); Chloride 103 mmol/L (98-107); Estimated CRCL calculation 72 ml/min; Estimated Glomerular Filt Rate > 60; Glucose 89 mg/dL (65-110); Magnesium 2.1 mg/dL (1.6-2.3); Potassium 3.8 mmol/L (3.4-5.0); Sodium 136 mmol/L (137-145)
[2022-05-20 08:00] VITALS: BP 114/76; PULSE 57; RESP 18; TEMP 36.1; O2SAT 96
[2022-05-20] MEDS: ENOXAPARIN 40 MG/0.4 ML SYRINGE SUB-Q (08:30)
[2022-05-20] MEDS: DIVALPROEX SODIUM ER 250 MG TAB.24H PO (08:30)
[2022-05-20] MEDS: FAMOTIDINE 20 MG/2 ML VIAL IV PUSH (08:30)
--- NOTE | 2022-05-20 10:23 | PM.IMPN ---
Progress Note: A&P Assessment and Plan (1) Small bowel obstruction: Code(s): K56.609 - Unspecified intestinal obstruction, unspecified as to partial versus complete obstruction Status: Acute (2) Bipolar 1 disorder: Code(s): F31.9 - Bipolar disorder, unspecified Status: Chronic Plan The patient has acute small-bowel obstruction. NG is in place the patient is NPO and IV fluids had been initiated. Pain medications with morphine 2 mg q.4 hours p.r.n.. Nausea medications have been provided. The patient has had recent changes in his stools including changes in caliber and appearance of his stool. This could be due to his recent dietary changes with his new job verses possible underlying pathology. General surgery has been consulted. [place] [address] but no clear source of infection. Leukocytosis is likely reactive. Will repeat CBC and electrolyte panel in a.m.. Patient did have some mild hyper calcemia but is likely due to dehydration as he also had accompanying elevated albumin. Continue IV fluids. The patient's home psychiatric medications are on hold. Will provide Ativan 0.5 mg q.6 hours p.r.n. anxiety. 05/20/2022 interval history: 46-year-old male presented with abdominal pain is found to have a small-bowel obstruction, currently on NG tube intermittent suction, pain is persistent, occasional passing gas, no BM, continue conservative management, decompression with NG tube, IV fluids and pain management, seen by General surgery patient may have small bowl follow-through today, patient states been ambulating in the corridor and today passing gas and pain is little better, patient is encouraged to ambulate, will monitor and further recommendation. Subjective Date/time seen: 05/20/22 10:23 05/20/2022 interval history: 46-year-old male presented with abdominal pain is found to have a small-bowel obstruction, currently on NG tube intermittent suction, pain is persistent, occasional passing gas, no BM, continue conservative management, decompression with NG tube, IV fluids and pain management, seen by General surgery patient may have small bowl follow-through today, patient states been ambulating in the corridor and today passing gas and pain is little better, patient is encouraged to ambulate, will monitor and further recommendation. Exam Narrative: Patient is comfortable, NAD HEENT: eyes are clear and none icteric LUNGS: normal respiratory effort ABD: distended Lower extremities: no edema SKIN: nonjaundiced Neuro: grossly intact. Objective Data Vital Signs Vital Signs: Vital Signs - 24 hr 05/19/22 14:00 05/19/22 22:00 05/20/22 06:00 Temperature 97.6 F 97.4 F L 96.9 F L Pulse Rate 57 L 57 L Respiratory Rate 15 18 Blood Pressure 125/83 114/76 Pulse Oximetry 98 96 Oxygen Delivery 05/20/22 08:00 05/20/22 08:30 Temperature 96.9 F L Pulse Rate 57 L Respiratory Rate 18 Blood Pressure 114/76 Pulse Oximetry 96 Oxygen Delivery Room Air Intake/Output Intake/Output: Intake & Output 05/17/22 05/18/22 05/19/22 05/20/22 23:59 23:59 23:59 23:59 Intake Total 1000 1000 2550 200 Output Total 850 800 300 Balance 6247 911 8161 -100 Meds/Results Medications: Active Medications Generic Name Dose Route Start Last Admin Trade Name Freq PRN Reason Stop Dose Admin Benzocaine 1 lozenge 05/19/22 17:45 05/19/22 20:14 Benzocaine/Menthol (*Bkc) 18 Ea Lozenge PO 1 lozenge PRN PRN Administration Sore Throat Divalproex Sodium 250 mg 05/19/22 08:00 05/20/22 08:30 Divalproex Sodium Er 250 Mg Tab.24h PO 250 mg DAILY@0800 CHAUNCEY Administration Divalproex Sodium 750 mg 05/18/22 21:00 05/19/22 20:15 Divalproex Sodium Er 250 Mg Tab.24h PO 750 mg HS CHAUNCEY Administration Enoxaparin Sodium 40 mg 05/18/22 09:00 05/20/22 08:30 Enoxaparin 40 Mg/0.4 Ml Syringe SUB-Q 40 mg DAILY CHAUNCEY Administration Famo
--- NOTE | 2022-05-20 11:19 | PC.NURSE ---
Patient asked for pain medication. RN returned to room and patient was sleeping. Will hold off on giving pain medication until patient wakes up.
--- NOTE | 2022-05-20 11:50 | PC.NURSE ---
Patient off of unit for small bowel follow through
--- NOTE | 2022-05-20 12:30 | PM.PNGS ---
Progress Note: A&P Assessment and Plan (1) Small bowel obstruction: Code(s): K56.609 - Unspecified intestinal obstruction, unspecified as to partial versus complete obstruction Status: Acute Assessment and Plan: Still having pain but plain films look good and abdominal exam essentially normal other than tenderness. Will get small bowel series with water-soluble contrast today. Hopefully will pass through without signs of residual obstruction. Subjective Subjective Date/Time Seen: 05/20/22 12:30 Patient reports: still having pain (Right mid abdomen. Feels better overall), no bowel movement and afebrile Review of Systems Review of Systems: All systems reviewed & are unremarkable except as noted in HPI and below (HPI and those items noted below) Constitutional: Constitutional: Denies chills and Denies fever(s) Cardiovascular: Cardiovascular: Denies chest pain, Denies diaphoresis, Denies dyspnea and Denies paroxysmal nocturnal dyspnea Respiratory: Respiratory: Denies chest congestion, Denies cough and Denies dyspnea Integumentary/Breasts: Skin/Breast: Denies lesions and Denies rash Exam Const: General: comfortable, no acute distress, alert and awake; No confusion Nutritional Appearance: well nourished Orientation/consciousness: patient oriented x3 and No confusion GI: Inspection: normal to inspection, non-distended, scaphoid and no visible herniation GI Palp: Yes Soft to palpation, Yes Tenderness to palpation present (GI) (Mid abdominal), No Guarding due to palpation present (GI) and No Rebound tenderness present Auscultation: normal bowel sounds Neuro: General: patient oriented x3, no focal motor deficits and No confusion Extrem: General: no calf tenderness and no edema Psych: Affect: normal affect Insight: Good insight present (Psych) Judgement: Good judgement present (Psych) Objective Data Vital Signs Vital Signs: Vital Signs - 24 hr 05/19/22 14:00 05/19/22 22:00 05/20/22 06:00 Temperature 36.4 C 36.3 C L 36.1 C L Pulse Rate 57 L 57 L Respiratory Rate 15 18 Blood Pressure 125/83 114/76 Pulse Oximetry 98 96 Oxygen Delivery 05/20/22 08:00 05/20/22 08:30 Temperature 36.1 C L Pulse Rate 57 L Respiratory Rate 18 Blood Pressure 114/76 Pulse Oximetry 96 Oxygen Delivery Room Air Intake/Output Intake/Output: Intake & Output 01/19/23 01/20/23 01/21/23 01/22/23 23:59 23:59 23:59 23:59 Intake Total 1000 1000 2550 200 Output Total 850 800 300 Balance 5117 941 8196 -100 Meds/Results Medications: Active Medications Generic Name Dose Route Start Last Admin Trade Name Freq PRN Reason Stop Dose Admin Benzocaine 1 lozenge 05/19/22 17:45 05/19/22 20:14 Benzocaine/Menthol (*Bkc) 18 Ea Lozenge PO 1 lozenge PRN PRN Administration Sore Throat Divalproex Sodium 250 mg 05/19/22 08:00 05/20/22 08:30 Divalproex Sodium Er 250 Mg Tab.24h PO 250 mg DAILY@0800 CHAUNCEY Administration Divalproex Sodium 750 mg 05/18/22 21:00 05/19/22 20:15 Divalproex Sodium Er 250 Mg Tab.24h PO 750 mg HS CHAUNCEY Administration Enoxaparin Sodium 40 mg 05/18/22 09:00 05/20/22 08:30 Enoxaparin 40 Mg/0.4 Ml Syringe SUB-Q 40 mg DAILY CAHUNCEY Administration Famotidine 20 mg 05/18/22 21:00 05/20/22 08:30 Famotidine 20 Mg/2 Ml Vial IV PUSH 20 mg Q12HR CHAUNCEY Administration Potassium Chloride/Dextrose/Sod Cl 1,000 mls @ 100 mls/hr 05/18/22 16:35 05/20/22 11:53 Kcl 20 Meq/D5/0.9% Sod Chl IV CONT 0 mls/hr .Q10H CHAUNCEY Infusion Lamotrigine 100 mg 05/18/22 21:00 05/19/22 20:15 Lamotrigine 100 Mg Tablet BY MOUTH 100 mg HS CHAUNCEY Administration Lorazepam 1 mg 05/18/22 16:29 Lorazepam Inj (*Crx) 2 Mg/Ml Vial IV PUSH Q6H PRN Anxiety Morphine Sulfate 2 mg 05/18/22 00:04 05/19/22 17:10 Morphine Sulfate (*Crx) 2 Mg/Ml Inj IV PUSH 2 mg Q4H PRN Administration Pain Rated 7-10 Phenol 1 spray 05/19/22 10:05 P
[2022-05-20 14:00] VITALS: BP 123/68; PULSE 72; RESP 18; TEMP 36.8; O2SAT 100
[2022-05-20] MEDS: KCL 20 MEQ/D5/0.9% SOD CHL 1,000 ML 60 ML IV CONT (14:24)
[2022-05-20] MEDS: QUEtiapine FUMARATE 100 MG TABLET PO (20:50)
[2022-05-20] MEDS: lamoTRIgine 100 MG TABLET BY MOUTH (20:50)
[2022-05-20] MEDS: DIVALPROEX SODIUM ER 250 MG TAB.24H 750 MG PO (20:50)
[2022-05-20] MEDS: FAMOTIDINE 20 MG TABLET PO (20:50)
[2022-05-21 06:00] VITALS: BP 100/63; PULSE 50; RESP 14; TEMP 36.2; O2SAT 98
[2022-05-21 06:52] LABS: Hematocrit 42.3 % (42.0-52.0); Hemoglobin 14.1 g/dL (14.0-18.0); Mean Corpuscular HGB Conc 33.3 g/dl (32-36); Mean Corpuscular Hemoglobin 30.4 pg (26-34); Mean Corpuscular Volume 91.2 fl (80-100); Mean Platelet Volume 9.6 fl (7.4-10.4); Platelet Count Result 206 k/mm3 (150-375); Red Blood Count 4.64 M/mm3 (4.6-6.20); Red Cell Distribution Width 12.5 % (11.5-14.5); White Blood Count 4.5 K/mm3 (4.5-10.0)
[2022-05-21 06:59] LABS: Alanine Aminotransferase 18 U/L (6-50); Albumin Level 3.7 g/dL (3.5-5.1); Alkaline Phosphatase 48 U/L (38-126); Anion Gap 6 mmol/L (8-16); Aspartate Amino Transferase 20 U/L (17-59); Bilirubin,Total 0.7 mg/dL (0.2-1.3); Blood Urea Nitrogen 12 mg/dL (9-20); Calcium 8.3 mg/dL (8.4-10.2); Carbon Dioxide 26 mmol/L (22-30); Chloride 108 mmol/L (98-107); Estimated CRCL calculation 72 ml/min; Estimated Glomerular Filt Rate > 60; Glucose 97 mg/dL (65-110); Magnesium 2.2 mg/dL (1.6-2.3); Potassium 4.2 mmol/L (3.4-5.0); Sodium 140 mmol/L (137-145)
[2022-05-21] MEDS: FAMOTIDINE 20 MG TABLET PO (08:01)
[2022-05-21] MEDS: DIVALPROEX SODIUM ER 250 MG TAB.24H PO (08:01)
[2022-05-21] MEDS: ENOXAPARIN 40 MG/0.4 ML SYRINGE SUB-Q (08:01)
--- NOTE | 2022-05-21 12:15 | PM.PNGS ---
Progress Note: A&P Assessment and Plan (1) Small bowel obstruction: Code(s): K56.609 - Unspecified intestinal obstruction, unspecified as to partial versus complete obstruction Status: Resolved Assessment and Plan: Pain is gone. Small-bowel series was normal. Advance to regular diet. Okay to discharge from surgical standpoint. No need for surgical follow-up unless further problems. Subjective Subjective Date/Time Seen: 05/21/22 12:15 Patient reports: feels better, pain is less, tolerating liquids well and afebrile Review of Systems Review of Systems: All systems reviewed & are unremarkable except as noted in HPI and below (HPI) Exam GI: Inspection: non-distended and scaphoid GI Palp: Yes Soft to palpation and No Tenderness to palpation present (GI) Auscultation: normal bowel sounds Objective Data Vital Signs Vital Signs: Vital Signs - 24 hr 05/20/22 14:00 05/20/22 20:00 05/21/22 06:00 Temperature 36.8 C 36.2 C L Pulse Rate 72 50 L Respiratory Rate 18 14 Blood Pressure 123/68 100/63 Pulse Oximetry 100 98 Oxygen Delivery Room Air Intake/Output Intake/Output: Intake & Output 05/18/22 05/19/22 05/20/22 05/21/22 23:59 23:59 23:59 23:59 Intake Total 1000 2550 2900 618 Output Total 850 800 300 Balance 150 1750 2600 618 Meds/Results Medications: Active Medications Generic Name Dose Route Start Last Admin Trade Name Freq PRN Reason Stop Dose Admin Benzocaine 1 lozenge 05/19/22 17:45 05/19/22 20:14 Benzocaine/Menthol (*Bkc) 18 Ea Lozenge PO 1 lozenge PRN PRN Administration Sore Throat Divalproex Sodium 250 mg 05/19/22 08:00 05/21/22 08:01 Divalproex Sodium Er 250 Mg Tab.24h PO 250 mg DAILY@0800 CHAUNCEY Administration Divalproex Sodium 750 mg 05/18/22 21:00 05/20/22 20:50 Divalproex Sodium Er 250 Mg Tab.24h PO 750 mg HS CHAUNCEY Administration Enoxaparin Sodium 40 mg 05/18/22 09:00 05/21/22 08:01 Enoxaparin 40 Mg/0.4 Ml Syringe SUB-Q 40 mg DAILY CHAUNCEY Administration Famotidine 20 mg 05/20/22 21:00 05/21/22 08:01 Famotidine 20 Mg Tablet PO 20 mg Q12HR CHAUNCEY Administration Potassium Chloride/Dextrose/Sod Cl 1,000 mls @ 60 mls/hr 05/18/22 16:35 05/20/22 14:24 Kcl 20 Meq/D5/0.9% Sod Chl IV CONT 60 mls/hr .[id number] CHAUNCEY Administration Lamotrigine 100 mg 05/18/22 21:00 05/20/22 20:50 Lamotrigine 100 Mg Tablet BY MOUTH 100 mg HS CHAUNCEY Administration Lorazepam 1 mg 05/18/22 16:29 Lorazepam Inj (*Crx) 2 Mg/Ml Vial IV PUSH Q6H PRN Anxiety Morphine Sulfate 2 mg 05/18/22 00:04 05/19/22 17:10 Morphine Sulfate (*Crx) 2 Mg/Ml Inj IV PUSH 2 mg Q4H PRN Administration Pain Rated 7-10 Phenol 1 spray 05/19/22 10:05 Phenol/Sod Pheno [place] (*Bkc) MUCOUS MEM PRN PRN Sore Throat Quetiapine Fumarate 100 mg 05/18/22 21:00 05/20/22 20:50 Quetiapine Fumarate 100 Mg Tablet PO 100 mg HS CHAUNCEY Administration Radiology Results: ITS Impressions Abdomen/Pelvis CT 05/17/22 22:51 IMPRESSION: 1. Small bowel obstruction with transition point in the anterior abdomen. 2. Mild mesenteric lymphadenopathy, likely reactive. Small Bowel X-Ray 05/20/22 12:51 IMPRESSION: 1. Normal small bowel series. Abdomen X-Ray 05/21/22 06:52 Impression: Nonspecific bowel gas pattern, with oral contrast in large bowel. Labs Labs: Laboratory Results - last 24 hr 05/21/22 05/21/22 06:29 06:29 WBC 4.5 RBC 4.64 Hgb 14.1 Hct 42.3 MCV 91.2 MCH 30.4 MCHC 33.3 RDW 12.5 Plt Count 206 MPV 9.6 Sodium 140 Potassium 4.2 Chloride 108 H Carbon Dioxide 26 Anion Gap 6 L BUN 12 Creatinine 1.20 Estim Creat Clear Calc 72 Estimated GFR > 60 Glucose 97 Calcium 8.3 L Magnesium 2.2 Total Bilirubin 0.7 AST 20 ALT 18 Alkaline Phosphatase 48 Total Protein 6.0 L Albumin 3.7 Imaging Attestatio
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
== END 2022-05-21 14:56 | disposition home or self-care (01) | DRG 247 ==
LOC: ANHED 05-18 00:05 → ANH3MEDSUR 05-18 00:49
PROVIDERS: Emergency Medicine; Admitting Provider Internal Medicine; Emergency Provider Emergency Medicine; PCP Family Medicine Adolescent Medicine; Visit Provider Family Medicine
DX: K56.609 Unspecified intestinal obstruction, unspecified as to partial versus complete obstruction (principal); E83.52 Hypercalcemia; E86.0 Dehydration; F31.9 Bipolar disorder, unspecified; F41.9 Anxiety disorder, unspecified; G43.909 Migraine, unspecified, not intractable, without status migrainosus; Z20.822 Contact with and (suspected) exposure to COVID-19; Z87.891 Personal history of nicotine dependence
CPT/HCPCS: 36415; 74018; 74177; 74250; 80053; 81001; 83605; 83690; 83735; 85025; 85027; 87636; 93005; 96361; 96374; 96375; 99285; A9270; C9113; J1650; J2270; J2405; J3480; J7030; Q9967

== ENCOUNTER 2022-07-31 01:04 | Day surgery (SDC) | payer BC, SELFPAY ==
[2022-07-19 10:08] VITALS: BMI 23.7
[2022-07-31 11:57] VITALS: BP 95/70; PULSE 86; RESP 16; TEMP 36.4; O2SAT 98
[2022-07-31] MEDS: LACTATED RINGERS 1,000 ML 150 ML IV CONT (12:05)
--- NOTE | 2022-07-31 12:06 | WPDANESEPPF ---
Anes - Initial Pre Proc Eval Procedure: Operation Date: 07/31/22 13:00 Proposed Procedures p Esophagogastroduodenoscopy & Colonoscopy - Lyle Gann MD Date/Time: 07/31/22 12:06 Surgeon: Lyle Gann MD Pre Op Diagnosis: N & V, Abdominal pain Patient Data Age: 47 Gender: M Height: 1.78 m Weight: 73.7 kg Last Vital Signs Temp 97.6 F 07/31/22 11:57 Pulse 86 07/31/22 11:57 Resp 16 07/31/22 11:57 BP 95/70 L 07/31/22 11:57 Pulse Ox 98 07/31/22 11:57 O2 Del Method Room Air 07/31/22 11:57 Allergies Allergy/AdvReac Type Severity Reaction Status Date / Time No Known Allergies Allergy Unknown Uncoded 07/31/22 11:56 Home Medications Medication Instructions Recorded Confirmed Type lamotrigine 100 mg tablet 100 mg PO HS 02/23/21 07/31/22 History alprazolam 1 mg tablet 1 mg PO DAILY 05/29/21 07/31/22 History divalproex 250 mg tablet,extended 250 mg PO DAILY 05/18/22 07/31/22 History release 24 hr divalproex 250 mg tablet,extended 750 mg PO HS 05/18/22 07/31/22 History release 24 hr quetiapine 50 mg tablet 100 mg PO HS 05/18/22 07/31/22 History famotidine 20 mg tablet 20 mg PO Q12HR #60 tabs 05/21/22 07/31/22 Rx sumatriptan succinate 100 mg tablet 100 mg PO .prn PRN Migraine 07/19/22 07/31/22 History Headache Patient hx anesthesia problems: none Family hx anesthesia problems: none Results Review: All pre-operative results and documents have been reviewed as part of the pre-operative evaluation. [facility] Past Medical History Medical History (Updated 07/06/22 @ 09:38 by Sagar Santa MD) Abdominal pain Anxiety Bipolar 1 disorder Bowel habit changes Depression Dorsalgia of thoracolumbar region History of small bowel obstruction Migraine headache Nausea and vomiting in adult Surgical History Surgical History No pertinent past surgical history Family History Family History Mother Asthma Depression Sibling Asthma Cerebrovascular accident Depression Father Malignant neoplasm of prostate Social History Social History Social History: The patient is single and lives alone. He has 1 daughter who is 26 years old. He works as a warehouse person. He rarely drinks alcohol and only in small amounts. He used to smoke less than a pack of cigarettes per day for between 8-10 years. He quit smoking in his mid 30s. He smokes marijuana and aids marijuana gummies. He has a medical marijuana card. Code status: Full code Surrogate decision maker: Mother Smoking packs per day: 0.5 Smoking cigarettes per day: 10.0 Years smoked: 10 Smoking pack-years: 5.00 Smoking status: Former smoker Tobacco type: cigarettes Second hand tobacco smoke exposure: No Smoking end date: 05/03/12 Alcohol intake: current Drinks per week: 1 Substance use: current Substance use type: marijuana Other substance usage details: MEDICAL-EDIBLES AND SMOKE Lack of Transportation: No Lack of Food: Never True Current Housing: I Have Housing Concerned About Future Housing: No Difficulty Paying Gas/Electric Bills: No Difficulty Paying for Meds: No Currently Unemployed: No Education: High School Diploma/GED Difficulty w/ Childcare or Family Care: No Living arrangements: with family Occupation/Education: occupation Gender identity (if verbalized by the patient): Male Sexual Orientation (if Verbalized by the Patient): Straight or Heterosexual Spiritual care concerns: No Agree to blood products: Yes Anes - Eval Final PreProcedure Day of Procedure 07/31/22 12:06 Patient weight: normal Heart: regular rate and rhythm Lungs: clear to auscultation Airway: Mallampati scale class II Neurological: alert and oriented Last or
--- NOTE | 2022-07-31 12:30 | PM.HPGS ---
History of Present Illness History of Present Illness Consent: Risks, benefits, and alternatives have been discussed and questions answered. Patient agrees to proceed with procedure. Chief complaint: N & V, Abdominal pain Narrative: Pedro Helms is a 47 year old male with hospitalization for SBO and n/v, back to his baseline but never had scopes. Review of Systems Constitutional: Constitutional: Denies headache(s) and Denies weakness Eyes: Eyes: Denies blurry vision ENT: Reports Normal hearing present, Denies headache(s) and Denies neck pain Cardiovascular: Cardiovascular: Denies chest pain and Denies dyspnea Respiratory: Respiratory: Denies dyspnea Gastrointestinal: Gastrointestinal: Reports no additional gastrointestinal complaints Genitourinary: Genitourinary: Denies dysuria Musculoskeletal: Musculoskeletal: Denies neck pain Integumentary/Breasts: Skin/Breast: Denies dry skin Neurologic: Reports Normal hearing present, Denies headache(s) and Denies weakness Psychiatric: Psychiatric: Denies anxiety Endocrine: Endocrine: Denies change in body appearance Hematologic/Lymphatic: Hematologic/Lymphatic: Denies easy bleeding Allergic/Immunologic: Allergic/Immunologic: Denies urticaria PMFSH Past Medical History Medical History (Updated 07/31/22 @ 12:31 by Lyle Gann MD) Abdominal pain Anxiety Bipolar 1 disorder Bowel habit changes Colon cancer screening Depression Dorsalgia of thoracolumbar region History of small bowel obstruction Migraine headache Nausea and vomiting in adult Surgical History Surgical History No pertinent past surgical history Family History Family History Mother Asthma Depression Sibling Asthma Cerebrovascular accident Depression Father Malignant neoplasm of prostate Social History Social History Social History: The patient is single and lives alone. He has 1 daughter who is 26 years old. He works as a data warehouse consultant. He rarely drinks alcohol and only in small amounts. He used to smoke less than a pack of cigarettes per day for between 8-10 years. He quit smoking in his mid 30s. He smokes marijuana and aids marijuana gummies. He has a medical marijuana card. Code status: Full code Surrogate decision maker: Mother Smoking packs per day: 0.5 Smoking cigarettes per day: 10.0 Years smoked: 10 Smoking pack-years: 5.00 Smoking status: Former smoker Tobacco type: cigarettes Second hand tobacco smoke exposure: No Smoking end date: 05/03/12 Alcohol intake: current Drinks per week: 1 Substance use: current Substance use type: marijuana Other substance usage details: MEDICAL-EDIBLES AND SMOKE Lack of Transportation: No Lack of Food: Never True Current Housing: I Have Housing Concerned About Future Housing: No Difficulty Paying Gas/Electric Bills: No Difficulty Paying for Meds: No Currently Unemployed: No Education: High School Diploma/GED Difficulty w/ Childcare or Family Care: No Living arrangements: with family Occupation/Education: occupation Gender identity (if verbalized by the patient): Male Sexual Orientation (if Verbalized by the Patient): Straight or Heterosexual Spiritual care concerns: No Agree to blood products: Yes Meds Home Medications and Allergies Home Medications Medication Instructions Recorded Confirmed Type lamotrigine 100 mg tablet 100 mg PO HS 02/23/21 07/31/22 History alprazolam 1 mg tablet 1 mg PO DAILY 05/29/21 07/31/22 History divalproex 250 mg tablet,extended 250 mg PO DAILY 05/18/22 07/31/22 History release 24 hr divalproex 250 mg tablet,extended 750 mg PO HS 05/18/22 07/31/22 History release 24 hr quetiapine 50 mg tablet 100 mg PO HS 05/18/22 07/31/22 His
--- NOTE | 2022-07-31 12:42 | SUR.OPER ---
EGD start 1237 end 1240, Colonoscopy start 1245
[2022-07-31 13:01] VITALS: BP 94/63; PULSE 67; RESP 22; O2SAT 100
[2022-07-31 13:11] VITALS: BP 101/75; PULSE 63; RESP 20; O2SAT 98
[2022-07-31 13:21] VITALS: BP 129/84; PULSE 80; RESP 17; O2SAT 100
== END 2022-07-31 13:32 | disposition home or self-care (01) ==
PROVIDERS: PCP Family Medicine Adolescent Medicine; Visit Provider Internal Medicine Gastroenterology
PROC: 0DJ08ZZ Inspection of Upper Intestinal Tract, Via Natural or Artificial Opening Endoscopic (ICD-10-PCS; CPT 43235; principal; 2022-07-31 13:00)
DX: Z12.11 Encounter for screening for malignant neoplasm of colon (principal); D12.3 Benign neoplasm of transverse colon; D12.0 Benign neoplasm of cecum; K64.8 Other hemorrhoids; R11.2 Nausea with vomiting, unspecified; Z87.19 Personal history of other diseases of the digestive system; F31.9 Bipolar disorder, unspecified; F41.9 Anxiety disorder, unspecified; F12.90 Cannabis use, unspecified, uncomplicated; Z87.891 Personal history of nicotine dependence
CPT/HCPCS: 45385; 43239; 88305; J2704; J7120